=== PATIENT | male | born 1955 | race Caucasian/White ===

== ENCOUNTER 2023-06-10 16:14 | Emergency (ER) | payer MEDICARE, SELFPAY ==
[2023-06-10] VITALS (13 sets, daily range): BP systolic 106–137; BP diastolic 81–105; PULSE 106–124; RESP 14–30; TEMP 37.7; O2SAT 91–95; BMI 25.9
--- NOTE | 2023-06-10 16:22 | XR_ITS ---
The [address] [address] Patient Name: FAVIAN ARMANDO MRN: [id number] date: 1955 Sex: M Assigned Patient Location: ER Current Patient Location: ER Accession/Order Number: [id number] Exam Date: 06/10/2023 16:30 Report Date: 06/10/2023 17:17 At the request of: MODESTA WOODRUFF Procedure: XR chest 1V CXR HISTORY: Shortness of breath COMPARISON: None. TECHNIQUE: 1 view chest submitted for review. FINDINGS: The lungs are adequately expanded without evidence of acute infiltrate or effusion. The cardiac silhouette measures within normal. Pulmonary vascularity is unremarkable. Osseous structures do not demonstrate any acute abnormality. XR/XR chest 1V IMPRESSION: No plain film evidence for acute cardiopulmonary disease. Electronically authenticated by: NIKHIL GARCIA Date: 06/10/2023 17:17
--- NOTE | 2023-06-10 16:22 | ECG_ITS ---
The [facility] Test Date: 2023-06-10 Pat Name: FAVIAN ARMANDO Department: Room: - Gender: Male [employer]: : 1955 Requested By: Order Number: [id number] Reading MD: EDYTA MUSTAFA Measurements Intervals [place] Rate: 108 P: 77 MO: 162 QRS: 74 QRSD: 88 T: 81 QT: 322 QTc: 386 Interpretive Statements 1120 Sinus tachycardia 9140 abnormal rhythm ECG No previous ECG available for comparison Electronically Signed On 06-10-2023 19:50:54 EST by EDYTA MUSTAFA
--- NOTE | 2023-06-10 16:32 | ED_ITS ---
HPI - General Adult General Chief complaint: Shortness of Breath/Dyspnea Stated complaint: FEVER COPD Time Seen by Provider: 06/10/23 16:15 Source: patient Mode of arrival: walk-in Limitations: no limitations History of Present Illness HPI narrative: Patient is a 67-year-old male presents to the ER with concerns of fever, shortness of breath. He has a history of COPD and prior cardiac stent, on Plavix. Patient recently exposed to his granddaughter who had an upper respiratory infection. Patient states he has been sweating, coughing, he denies any pain in his chest or back. Patient notes he is short of breath with exertion. He does not take any oxygen at home, but last had a nebulizer tx at 2pm. Pt has been taking tylenol 1 G 2-3 times a day. Denies abdominal pain. Pain Consistency: Reports constant Associated symptoms: Reports cough, diaphoresis, fever/chills, malaise and shortness of breath; Denies chest pain or syncope Treatments prior to arrival: Reports NSAID Related Data Home Medications Medication Instructions Recorded Confirmed albuterol sulfate 2.5 mg/3 mL 2.5 mg continuous nebulization 06/10/23 06/10/23 (0.083 %) solution for nebulization DAILY PRN shortness of breath or wheezing amlodipine 5 mg tablet 5 mg PO DAILY 06/10/23 06/10/23 aspirin 81 mg tablet,delayed 81 mg PO DAILY 06/10/23 06/10/23 release (Adult Aspirin Regimen) atorvastatin 80 mg tablet 80 mg PO DAILY 06/10/23 06/10/23 budesonide 160 mcg-glycopyr 9 2 inh inhalation BID 06/10/23 06/10/23 mcg-formot 4.8 mcg/actuation HFA inhaler (Breztri Aerosphere) buspirone 10 mg tablet 10 mg PO TID 06/10/23 06/10/23 clopidogrel 75 mg tablet 75 mg PO DAILY 06/10/23 06/10/23 lisinopril 20 mg tablet 20 mg PO DAILY 06/10/23 06/10/23 metoprolol succinate 50 mg 50 mg PO DAILY 06/10/23 06/10/23 tablet,extended release 24 hr ticagrelor 90 mg tablet (Brilinta) 90 mg PO BID 06/10/23 06/10/23 Allergies Allergy/AdvReac Type Severity Reaction Status Date / Time tiotropium Allergy Intermediate Verified 06/10/23 16:24 [From Spiriva with HandiHaler] Review of Systems ROS Constitutional Reports: fever and chills Eyes Denies: change in vision Ears, nose, mouth, and throat Reports: dry mouth and nasal congestion; Denies: neck pain or throat swelling Cardiovascular Denies: chest pain or palpitations Respiratory Reports: shortness of breath, cough and wheezing Gastrointestinal Reports: diarrhea (1 episode); Denies: abdominal pain, nausea or vomiting Genitourinary Denies: painful urination Musculoskeletal Denies: back pain or neck pain Integumentary/Breast Denies: rash or itching Neurological Denies: headache or numbness in extremities Psychiatric Denies: anxiety or mood swings Endocrine Denies: excessive urination Hematologic/Lymphatic Denies: easy bruising Exam Narrative Exam Narrative: Nurses notes and vital signs reviewed and patient is not hypoxic. General: The patient appears ill, 4-5 word sentences. Skin: Warm, diaphoertic on brow only , no pallor noted. Head: Normocephalic, atraumatic Neck: Supple, trachea mid-line, no tenderness, no lymphadenopathy Eye: Pupils are equal, round and reactive to light, EOMI Ears, Nose, Mouth, and Throat: TM are clear, normal light reflex, oral mucosa is moist, no posterior oropharynx erythema or hypertrophy, uvula is mid-line, minimal nasal congestion Cardiovascular: Regular Rate and Rhythm Respiratory: Labored breathing, slight exp wheeze, diminished in bases. Chest Wall: no tenderness Back: non-tender, no CVA tenderness Musculoskeletal: normal ROM, no tenderness, no swelling of extremties. GI: Normal bowel sounds, no tenderness to palpation, no masses appreciated. No rebound, guarding, or rigidity noted. Neurological: A&O x4 Psychiatric: Cooperative Constitutional Vital Signs, click to edit/add: Last Vital Signs Temp 99.9 F 06/10/23 16:18 Pulse 112 H 06/10/23 18:20 Resp 15 06/10/23 18:20 BP 106/81 06/10/23 16:50 Pulse Ox 94 L 06/10/23 18:20 O2 Del Method Room Air 06/10/23 17:00 Course Vital Signs Vital signs: Vital Signs Temperature 99.9 F 06/10/23 16:18 Pulse Rate 124 H 06/10/23 16:18 Respiratory Rate 26 H 06/10/23 16:18 Blood Pressure 137/105 H 06/10/23 16:18 Pulse Oximetry 93 L 06/10/23 16:18 Oxygen Delivery Method Room Air 06/10/23 16:18 Temperature 99.9 F 06/10/23 16:18 Pulse Rate 112 H 06/10/23 18:20 Respiratory Rate 15 06/10/23 18:20 Blood Pressure 106/81 06/10/23 16:50 Pulse Oximetry 94 L 06/10/23 18:20 Oxygen Delivery Method Room Air 06/10/23 17:00 Medical Decision Making MDM Narrative Medical decision making narrative: History of COPD, patient treated with Albuterol given ipratropium allergy, Solu- Medrol 125 mg IV, given fever, heart rate septic labs ordered blood pressure stable and given 1 L IV fluids to start. EKG reviewed, patient without any complaints of chest pain or discomfort. Suspect a COPD exacerbation from likely viral URI. Labs pending Studies, influenza A positive. After receiving IV fluids, patient reports feeling much better. We discussed dehydration, patient states he can drink fluids at home. He is no longer wheezing. Patient reports he is compliant with his home breathing treatments. We discussed an admission for observation given his midrange pulse ox in the 90s, patient declines, he was ambulated in the ER and maintained a good stat and reported no increase shortness of breath. Patient agreeable to return if symptoms worsen but declines need for admission at this time. Will hold on oral steroid in the setting of influenza A, but he is outside the treatment window for Tamiflu. Patient verbalized understanding and will return if symptoms worsen or new symptoms develop. Patient very appreciative. Chest x-ray without evidence of infiltrate the patient is to followup with primary care physician in next 2-3 days or to return to the emergency department should any of the signs or symptoms worsen or new symptoms develop. Patient had questions answered. The patient agrees with the following Diagnosis and Treatment plan and the patient will be discharged home. Lab Data Lab results reviewed: Yes I reviewed the patient's lab results Labs: Lab Results 06/10/23 06/10/23 06/10/23 Range/Units 16:43 16:48 16:49 WBC 7.3 (4.0-11.0) 10^3/uL RBC 4.26 L (4.70-6.10) 10^6/uL Hgb 12.9 L (14.0-18.0) g/dL Hct 37.9 L (42.0-54.0) % MCV 89.0 (80.0-94.0) fL MCH 30.3 (25.9-34.0) pg MCHC 34.0 (29.9-35.2) g/dL RDW 13.7 (11.0-15.0) % Plt Count 262 (150-450) 10^3/uL MPV 10.5 (9.5-13.5) fL Seg Neuts % (Manual) 80.0 Band Neutrophils % 8.0 H (0-5) % Lymphocytes % (Manual) 10.0 L (20.5-60.0) % Monocytes % (Manual) 2.0 (1.7-12.0) % Eosinophils % (Manual) 0.0 L (0.9-7.0) % Basophils % (Manual) 0.0 L (0.2-2.0) % Neutrophils # (Manual) 5.84 (1.4-6.5) 10^3/uL Band Neutrophils # 0.6 H (0.0-0.3) 10^3/uL Lymphocytes # (Manual) 0.73 L (1.20-3.80) 10^3/uL Monocytes # (Manual) 0.14 L (0.30-0.80) 10^3/uL Eosinophils # (Manual) 0.00 (0.00-0.70) 10^3/uL Basophils # (Manual) 0.00 (0.00-0.10) 10^3/uL PT 11.3 (9.0-11.6) sec INR 1.07 APTT 32.4 (22.3-36.2) sec Sodium 133 L (136-145) mmol/L Potassium 3.9 (3.5-5.1) mmol/L Chloride 97 L (98-107) mmol/L Carbon Dioxide 22.0 (21.0-32.0) mmol/L Anion Gap 17.9 BUN 20.0 H (7.0-18.0) mg/dL Creatinine 1.43 H (0.70-1.30) mg/dL Est GFR ( Amer) 60 (>=60) Est GFR (Non-Af Amer) 49 L (>=60) BUN/Creatinine Ratio 14.0 Glucose 149 H (74-106) mg/dL Lactate 1.3 (0.4-2.0) mmol/L Calcium 8.7 (8.5-10.1) mg/dL Total Bilirubin 0.5 (0.2-1.0) mg/dL AST 23 (15-37) U/L ALT 21 (16-63) U/L Alkaline Phosphatase 64 (46-116) U/L Troponin I High Sens 11.4 (4.0-76.1) pg/mL NT-Pro-B Natriuret Pep 49.0 (<=900.0) pg/mL Total Protein 8.1 (6.4-8.2) g/dL Albumin 3.6 (3.4-5.0) g/dL Globulin 4.5 g/dL Albumin/Globulin Ratio 0.8 Procalcitonin 0.14 (0.00-0.50) ng/mL Adenovirus (PCR) Not detected (NOT DETECTE) C. pneumoniae DNA (PCR) Not detected (NOT DETECTE) Coronavirus Type OC43 Not detected (NOT DETECTE) Coronavirus Type HKU1 Not detected (NOT DETECTE) Coronavirus Type 229E Not detected (NOT DETECTE) Coronavirus Type NL63 Not detected (NOT DETECTE) Human Metapneumovir PCR Not detected (NOT DETECTE) Influ A (H1N1/09) PCR Detected A (NOT DETECTE) M. pneumoniae (PCR) Not detected (NOT DETECTE) Parainfluenza PCR Not detected (NOT DETECTE) Parainfluenza 2 (PCR) Not detected (NOT DETECTE) Parainfluenza 3 (PCR) Not detected (NOT DETECTE) Parainfluenza 4 (PCR) Not detected (NOT DETECTE) RSV (RT-PCR) Not detected (NOT DETECTE) Entero/Rhino (PCR) Not detected (NOT DETECTE) SARS-CoV-2 (PCR) Not detected (NOT DETECTE) Bordetella pertussis (PCR) Not detected (NOT DETECTE) B parapertussis DNA PCR Not detected (NOT DETECTE) Influenza Type B (PCR) Not detected (NOT DETECTE) Imaging Data Chest x-ray: Attestation: I have reviewed the pertinent imaging results. Radiologist's impression: ITS Impressions Chest X-Ray 06/10/23 16:22 IMPRESSION: No plain film evidence for acute cardiopulmonary disease. Electronically authenticated by: NIKHIL GARCIA Date: 06/10/2023 17:17 ECG Data Attestation: I personally reviewed and interpreted this ECG as follows: Interpretation: EKG interpretation: Emergency Department physician interpretation, sinus tachycardia at 108 BPM. no ectopy, no ST segment elevation, normal axis. Discharge Plan Discharge Chief Complaint: Shortness of Breath/Dyspnea Clinical Impression: Influenza A, Acute exacerbation of chronic obstructive pulmonary disease (COPD) Patient Disposition: Home, Self-Care Time of Disposition Decision: 18:35 Condition: Good Prescriptions / Home Meds: No Action albuterol sulfate 2.5 mg /3 mL (0.083 %) solution for nebulization 2.5 mg continuous nebulization DAILY PRN (Reason: shortness of breath or wheezing) amlodipine 5 mg tablet 5 mg PO DAILY aspirin [Adult Aspirin Regimen] 81 mg tablet,delayed release (DR/EC) 81 mg PO DAILY atorvastatin 80 mg tablet 80 mg PO DAILY Breztri Aerosphere 160-9-4.8 mcg/actuation HFA aerosol inhaler 2 inh inhalation BID Brilinta 90 mg tablet 90 mg PO BID buspirone 10 mg tablet 10 mg PO TID lisinopril 20 mg tablet 20 mg PO DAILY metoprolol succinate 50 mg tablet extended release 24 hr 50 mg PO DAILY clopidogrel 75 mg tablet 75 mg PO DAILY Rx Instructions: takes every other day Instructions: Influenza (ED), COPD (Chronic Obstructive Pulmonary Disease) (ED) Additional Instructions: Contact your doctor on Sunday for office follow-up. 2-3 days, return to ER if breathing worsens. Stand Alone Forms: Portal Instructions Referrals: Physician,Non-Staff, MD [Primary Care Provider] - 1 week
[2023-06-10] MEDS: ALBUTEROL SULFATE 2.5 MG/3 ML VIAL NEB IH (16:43)
[2023-06-10] MEDS: 0.9 % SODIUM CHLORIDE 1,000 ML 999 ML IV (16:50)
[2023-06-10] MEDS: METHYLPREDNISOLONE SOD SUCC PF 125 MG/2 ML VIAL IVP (16:51)
[2023-06-10 16:55] LABS: Adenovirus NOT DETECTED (NOT DETECTE); Bordetella parapertussis NOT DETECTED (NOT DETECTE); Coronavirus 229E NOT DETECTED (NOT DETECTE); Coronavirus HKU1 NOT DETECTED (NOT DETECTE); Coronavirus NL63 NOT DETECTED (NOT DETECTE); Coronavirus OC43 NOT DETECTED (NOT DETECTE); Human Metapneumovirus NOT DETECTED (NOT DETECTE); Human Rhinovirus/Enterovirus NOT DETECTED (NOT DETECTE); Influenza B NOT DETECTED (NOT DETECTE); Mycoplasma pneumoniae NOT DETECTED (NOT DETECTE); Parainfluenza Virus 1 NOT DETECTED (NOT DETECTE); Parainfluenza Virus 2 NOT DETECTED (NOT DETECTE); Parainfluenza Virus 3 NOT DETECTED (NOT DETECTE); Parainfluenza Virus 4 NOT DETECTED (NOT DETECTE); Respiratory Syncytial Virus NOT DETECTED (NOT DETECTE); SARS-CoV-2 NOT DETECTED (NOT DETECTE)
[2023-06-10 16:58] LABS: Hematocrit 37.9 % (42.0-54.0); Hemoglobin 12.9 g/dL (14.0-18.0); Mean Corpuscular Hemoglobin 30.3 pg (25.9-34.0); Mean Platelet Volume 10.5 fL (9.5-13.5); Platelet Count 262 10^3/uL (150-450); Red Blood Count 4.26 10^6/uL (4.70-6.10); Red Cell Distribution Width 13.7 % (11.0-15.0); White Blood Count 7.3 10^3/uL (4.0-11.0)
[2023-06-10 17:18] LABS: Lactate/Lactic Acid 1.3 mmol/L (0.4-2.0)
[2023-06-10 17:20] LABS: Band Neutrophils Absolute 0.6 10^3/uL (0.0-0.3); Lymphocytes Absolute Manual 0.73 10^3/uL (1.20-3.80); Monocytes Absolute Manual 0.14 10^3/uL (0.30-0.80); Segmented Neut Absolute Manual 5.84 10^3/uL (1.4-6.5)
[2023-06-10 17:21] LABS: INR 1.07; Partial Thromboplastin Time 32.4 sec (22.3-36.2); Prothrombin Time 11.3 sec (9.0-11.6)
[2023-06-10 17:22] LABS: Troponin I High Sensitivity 11.4 pg/mL (4.0-76.1)
[2023-06-10 17:24] LABS: Alanine Aminotransferase 21 U/L (16-63); Albumin Globulin Ratio 0.8; Albumin Level 3.6 g/dL (3.4-5.0); Alkaline Phosphatase 64 U/L (46-116); Anion Gap 17.9; Aspartate Amino Transferase 23 U/L (15-37); Bilirubin Total 0.5 mg/dL (0.2-1.0); Calcium 8.7 mg/dL (8.5-10.1); Chloride 97 mmol/L (98-107); Estimated GFR (African America 60 (>=60); Estimated GFR (Non-African Ame 49 (>=60); Globulin 4.5 g/dL; Glucose 149 mg/dL (74-106); Potassium 3.9 mmol/L (3.5-5.1); Sodium 133 mmol/L (136-145); Total Protein 8.1 g/dL (6.4-8.2)
[2023-06-10 17:45] LABS: PROCALCITONIN 0.14 ng/mL (0.00-0.50)
[2023-06-10 17:52] LABS: Influenza A\\H1-2009 DETECTED (NOT DETECTE)
[2023-06-10] MEDS: BUSPIRONE HCL 10 MG TABLET PO (18:15)
== END 2023-06-10 18:54 | disposition home or self-care (01) ==
PROVIDERS: Personal Emergency Response Attendant; Emergency Provider Emergency Medicine
DX: J10.1 Influenza due to other identified influenza virus with other respiratory manifestations (principal); J44.1 Chronic obstructive pulmonary disease with (acute) exacerbation; R06.02 Shortness of breath; Z95.5 Presence of coronary angioplasty implant and graft; Z79.02 Long term (current) use of antithrombotics/antiplatelets; Z79.82 Long term (current) use of aspirin; Z79.899 Other long term (current) drug therapy
CPT/HCPCS: 0202U; 36415; 71045; 80053; 83605; 83880; 84145; 84484; 85007; 85027; 85610; 85730; 87040; 93005; 94640; 96374; 99285; J2930